=== PATIENT | female | born 1975 | race Caucasian/White ===

== ENCOUNTER 2018-05-19 05:17 | Emergency (ER) | payer OTHER ==
[2018-05-19 05:22] VITALS: BP 164/103
--- NOTE | 2018-05-19 05:28 | EDPHY ---
H & P Stated Complaint: Exposure Time Seen by Provider: 05/19/18 05:28 HPI/ROS: HPI CHIEF COMPLAINT: Needlestick HISTORY OF PRESENT ILLNESS: This is a 42-year-old female she is a nurse here, she works on labor and delivery. She was vaccinating a child with a hepatitis- B shot. She went to close the needle and scraped her pinky finger on her left hand. She immediately washed her hand. The baby is noted to be hep C positive. She arrives to the emergency room to be evaluated and will need to follow up with employee health. She denies any significant medical history This happened at 9:30 p.m. Last night. Past Medical History: Denies significant medical history Past Surgical History: Cholecystectomy Social History: Works as an RN. Family History: Noncontributory ROS REVIEW OF SYSTEMS: 10 Systems were reviewed and negative with the exception of the elements mentioned in the history of present illness. Exam Constitutional appears well nontoxic no acute distress triage nursing summary reviewed, vital signs reviewed, awake/alert. Eyes normal conjunctivae and sclera, EOMI, PERRLA. HENT normal inspection, atraumatic, moist mucus membranes, no epistaxis, neck supple/ no meningismus, no raccoon eyes. Respiratory clear to auscultation bilaterally, normal breath sounds, no respiratory distress, no wheezing. Cardiovascular rate normal, regular rhythm, no murmur, no edema, distal pulses normal. Gastrointestinal soft, non-tender, no rebound, no guarding, normal bowel sounds, no distension, no pulsatile mass. Genitourinary no CVA tenderness. Musculoskeletal no midline vertebral tenderness, full range of motion, no calf swelling, no tenderness of extremities, no meningismus, good pulses, neurovascularly intact. Skin no significant wound to the left hand or pinky. pink, warm, & dry, no rash, skin atraumatic. Neurologic awake, alert and oriented x 3, AAOx3, moves all 4 extremities equally, motor intact, sensory intact, CN II-XII intact, normal cerebellar, normal vision, normal speech. Psychiatric normal mood/affect. Heme/Lymph/Immune no lymphadenopathy. Differential Diagnosis: Includes but is not limited to in a particular order needlestick exposure, hepatitis-C exposure, HIV exposure. Medical Decision Making: Plan for this patient will send her blood work, source blood work has already been sent. Patient need to follow up with employee health. Discussed at length the patient she understands and is comfortable this plan. Re-evaluation: 0535AM: Patient is up-to-date on tetanus shot. Also she has been vaccinated to hepatitis-B. Offered HIV prophylaxis however decline. Mom of the baby source is known to be HIV negative. Source: Patient - Personal History LMP (Females 10-55): 15-21 Days Ago Current Tetanus/Diphtheria Vaccine: Yes Current Tetanus Diphtheria and Acellular Pertussis (TDAP): Yes - Medical/Surgical History Hx Asthma: No Hx Chronic Respiratory Disease: No Hx Diabetes: No Hx Cardiac Disease: No Hx Renal Disease: No Hx Cirrhosis: No Hx Alcoholism: No Hx HIV/AIDS: No Hx Splenectomy or Spleen Trauma: No - Social History Smoking Status: Never smoked Constitutional: Initial Vital Signs Temperature (C) 36.9 C 05/19/18 05:19 Heart Rate 77 05/19/18 05:19 Respiratory Rate 18 05/19/18 05:19 Blood Pressure 164/103 H 05/19/18 05:19 O2 Sat (%) 97 05/19/18 05:19 O2 Delivery Mode Room Air Allergies/Adverse Reactions: No Allergies [NKDA] Allergy (Verified 05/19/18 05:22) Home Medications: Medication Instructions Recorded None 12/21/09 Departure - Departure Disposition: Home, Routine, Self-Care Clinical Impression: Needlestick injury of finger Condition: Good Instructions: Needle Stick Injuries (ED) Additional Instructions: 1. Follow up with employee health Referrals: NONE *PRIMARY CARE P,. [Primary Care Provider] - As per Instructions [facility],. [Clinic] - As per Instructions
[2018-05-19 07:29] LABS: HEPATITIS C ANTIBODY TOTAL NEGATIVE (NEGATIVE); HIV TYPE 1 AND 2 NEGATIVE (NEGATIVE)
== END 2018-05-19 05:52 | disposition home or self-care (01) ==
LOC: EEVIPCON 05:17
DX: S61.237A Puncture wound without foreign body of left little finger without damage to nail, initial encounter (principal); Y92.89 Other specified places as the place of occurrence of the external cause; Y99.0 Civilian activity done for income or pay; Y93.89 Activity, other specified
CPT/HCPCS: G0472

== ENCOUNTER 2018-09-15 10:28 | Emergency (ER) | payer OTHER | END 2018-09-15 12:18 | disposition home or self-care (01) ==